=== PATIENT | male | born 2000 | race Caucasian/White ===

== ENCOUNTER 2021-04-08 16:57 | Emergency (ER) | payer SELFPAY ==
[2021-04-08 17:00] VITALS: BP 156/84; PULSE 86; RESP 18; TEMP 37; O2SAT 99
--- NOTE | 2021-04-08 19:35 | ED.GENADULT ---
HPI - General Adult General Chief complaint: Skin/Abscess/Foreign Body Stated complaint: cysts on tailbone Time Seen by Provider: 04/08/21 17:39 Source: patient Mode of arrival: ambulatory Limitations: no limitations History of Present Illness HPI narrative: Patient presents with chief complaint of abscess to the left gluteal cleft that has been present for approximately 1 week. Patient states that a few days ago he went to the ER and was told that the cyst was too firm and not ready to be drained so he was placed on clindamycin and given tramadol for pain. Patient states yesterday the abscess began draining and seem to come to ahead. Patient states that he called the claims counsel office to discuss follow-up and they told him to present to the emergency department. Patient does not have fever, chills, nausea, vomiting. Patient states this is his first time having a pilonidal abscess in the area. patient denies any other symptoms or concerns. Related Data Allergies Allergy/AdvReac Type Severity Reaction Status Date / Time No Known Allergies Allergy Verified 04/08/21 17:03 Review of Systems Review of Systems: CONSTITUTIONAL: Denies fever, chills, or sweats. EYES: Denies visual changes, redness, or discharge. ENT: Denies rhinorrhea, congestion, sore throat, or otalgia. CARDIOVASCULAR: Denies chest pain, palpitations, or edema. RESPIRATORY: Denies cough or dyspnea. GASTROINTESTINAL: Denies abdominal pain, nausea, vomiting, or diarrhea. GENITOURINARY: Denies dysuria or hematuria. SKIN: Reports abscess denies rash or itching. MUSCULOSKELETAL: Denies back pain, joint pain, or myalgia. NEUROLOGIC: Denies headache, numbness, dizziness, or weakness. PSYCHIATRIC: Denies anxiety or depression. Exam Narrative: GENERAL: Well-appearing, well-nourished, and in no acute distress. HEAD: Normocephalic, atraumatic. EYES: PERRLA and EOMI. CHEST: Clear to auscultation. No respiratory distress. No wheezes rales or rhonchi EXTREMITIES: Normal range of motion. No edema. SKIN: Abscess noted to left gluteal cleft. Very small opening noted to center. No drainage present at this time. Warm, dry, no rash. NEURO: No focal deficits. Alert and oriented x3. PSYCH: Normal mood and affect. Course Vital Signs Vital signs: Vital Signs Temperature 98.6 F 04/08/21 17:00 Pulse Rate 86 04/08/21 17:00 Respiratory Rate 18 04/08/21 17:00 Blood Pressure 156/84 H 04/08/21 17:00 Pulse Oximetry 99 04/08/21 17:00 Temperature 98.6 F 04/08/21 17:00 Pulse Rate 86 04/08/21 17:00 Respiratory Rate 18 04/08/21 17:00 Blood Pressure 156/84 H 04/08/21 17:00 Pulse Oximetry 99 04/08/21 17:00 Procedures Abscess I/D laura-rectal: Side (if applicable): left Local Anesthetic: lidocaine 1% Amount of anesthesia used (mL): 4 Technique: incised with #11 blade Irrigation: Yes Packing used?: iodoform I&D Results: Pus Medical Decision Making MDM Narrative Medical decision making narrative: Abscess drained easily. Packing was placed. There was not extensive tracking noted. Discussed wound care instructions from the need to remove packing. The need to follow-up primary care for reevaluation. Patient has already been prescribed clindamycin a few days ago and still has the prescription to finish. Patient also has tramadol at home for pain. Patient denies any other needs or concerns. Vital Signs Vital Signs: Vital Signs Temperature 98.6 F 04/08/21 17:00 Pulse Rate 86 04/08/21 17:00 Respiratory Rate 18 04/08/21 17:00 Blood Pressure 156/84 H 04/08/21 17:00 Pulse Oximetry 99 04/08/21 17:00 Temperature 98.6 F 04/08/21 17:00 Pulse Rate 86 04/08/21 17:00 Respiratory Rate 18 04/08/21 17:00 Blood Pressure 156/84 H 04/08/21 17:00 Pulse Oximetry 99 04/08/21 17:00 Discharge Plan Discharge Clinical Impression: Pilonidal abscess Patient Disposition: Home, Self-Car
== END 2021-04-08 19:28 | disposition home or self-care (01) ==
PROVIDERS: Emergency Provider Family Medicine
DX: L05.01 Pilonidal cyst with abscess (principal)
CPT/HCPCS: 10061; 10080; 46040; 87070; 87077; 87186; 87205; 99282; 99283

== ENCOUNTER 2021-07-13 11:14 | Outpatient (CLI) | payer SELFPAY ==
[2021-07-13 11:54] LABS: Influenza Control Valid (Valid); SARS-CoV-2 Ag Negative (Negative)
== END 2021-07-13 11:15 | disposition home or self-care (01) ==
LOC: CHSLAB 11:16
PROVIDERS: PCP Internal Medicine; Visit Provider Internal Medicine
DX: J06.9 Acute upper respiratory infection, unspecified (principal); Z20.822 Contact with and (suspected) exposure to COVID-19
CPT/HCPCS: 87081; 87426; 87804; 87880; C9803

== ENCOUNTER 2025-03-21 10:38 | Outpatient (CLI) | payer OTHER, SELFPAY ==
--- OUTSIDE RECORDS SUMMARY | 2025-03-21 10:45 | XMS_ITS | Clinical Summary ---
Author Organization [facility] Address [address] [place] [id number] Care Team Providers Care Distribution Operation Supervisor Name Role Phone Gilbert Frederick MD Primary Care Provider [phone] Allergies No known active allergies Medications albuterol HFA (PROVENTIL HFA,VENTOLIN HFA,PROAIR HFA) 90 mcg/actuation inhaler Inhale 2 puffs 4 (four) times a day for 5 days ON SCHEDULE FOR FIRST 5 DAYS,AFTER 5 DAYS USE IT NEEDED FOR WHEEZING/ SHORTNESS OF BREATH 1 Inhaler 0 Active FreeStyle Maritza 3 Sensor device as directed 3 Active escitalopram (LEXAPRO) 10 mg tablet Take 1 tablet (10 mg total) by mouth daily Active lamoTRIgine (LaMICtal) 100 mg tablet Take 1 tablet (100 mg total) by mouth daily Active metFORMIN XR (GLUCOPHAGE XR) 500 mg 24 hr tablet TAKE 4 TABLETS BY MOUTH EVERY DAY IN THE EVENING WITH MEAL 3 Active rifAXIMin (XIFAXAN) 200 mg tabletIndicatio ns:Irritable bowel syndrome with diarrhea Take 1 tablet (200 mg total) by mouth 3 (three) times a day 9 tablet 3 Active Ozempic 0.25 mg or 0.5 mg (2 mg/3 mL) pen injector injectionIndica tions:Weight Loss Management for Obese Patient (BMI >= 30),type 2 diabetes mellitus Inject 0.5 mg under the skin once a week 3 mL 1 4 Active empagliflozin (Jardiance) 10 mg tabletIndicatio ns:type 2 diabetes mellitus Take 1 tablet (10 mg total) by mouth daily 28 tablet 4 Active Active Problems Problem Noted Date Diagnosed Date Encounter for medical examination to establish c are 02/05/2023 Assessment & Plan (02/05/2023 12:32 PM CDT): A(n) initial well visit to establish care has been performed today. Howard Velasco is not up to date on screening tests. He is in need of Diabetic eye exam, Diabetic foot exam, Diabetic kidney disease screening, and Cholesterol screening. He is not up to date on needed preventative vaccinations; He is in need of Tdap/Td and Pneumonia (Prevnar-13 or Pneumovax-23). We discussed healthy lifestyle habits, educational material has been given. Medications reviewed, changes documented as per the medical record and discussed with patient along with risks vs benefits. Return in 3 months Irritable bowel syndrome with diarrhea 3 Type 2 diabetes mellitus with hyperlipidemia 07/2022 Class 2 severe obesity due t o excess calories with serious comorbidity and body mass index (BMI) of 35.0 to 35.9 in adult 01/31/2023 Assessment & Plan (09/18/2023 2:02 PM CDT): BMI Follow-up includes: nutrition counseling, exercise counseling, and education provided. Assessment & Plan (06/24/2023 1:30 PM [employer]): BMI Follow-up includes: nutrition counseling, exercise counseling, and education provided. Immunizations Immunization Administration Dates Next Due DTaP 07/09/2001 Hib (PRP-T) 01/16/2002 IPV 10/17/2001 Influenza, Live, Intranasal, Quadrivalent 05/01/2015 Influenza, Quadrivalent, Spl it, Preservative Free, Intramuscular 04/25/2016 Influenza, Unspecified 06/19/2023(Deferr ed: Patient Refused),01/31/2023(Deferred: Patient Refused),07/03/2022(Deferred: Patient Refused),04/03/2022(Deferred: Patient Refused),07/03/2021(Deferred: Patient Refused) MMR 09/06/2001 Meningococcal B, Recombinant (Trumenba) 01/16/2018,10/14/2016 Meningococcal MCV4, Unspecified 10/14/2016 Pneumococcal Conjugate Pcv20 09/18/2023 Tdap 01/16/2018 Varicella 04/18/2002 Medical History Medical History Date Comments Class 2 severe obesity due t o excess calories with serious comorbidity and body mass index (BMI) of 35.0 to 35.9 in adult (HCC) 01/31/2023 Type 2 diabetes mellitus with hyperlipidemia (HC C) 01/31/2023 Family History Medical History Relation Name Comments Anxiety disorder Father Depression Father Hyperlipidemia Father Suicide Completion Father Alcohol abuse Maternal Grandfather Ulcers Maternal Grandfather No Known Problems Maternal Grandmother No Known Problems Maternal Half-Brother Diabetes type I Mother No Known Problems Paternal Grandfather Brain cancer Paternal Grandmother No Known Problems Paternal Half-Brother 1 Mental illness Paternal Half-Brother 2 No Known Problems Paternal Half-Sister Relation Name Status Comments Father Maternal Grandfather Maternal Grandmother Alive Maternal Half-Brother Alive Mother Alive Paternal Grandfather Paternal Grandmother Paternal Half-Brother 1 Alive Paternal Half-Brother 2 Alive Paternal Half-Sister Alive Social History Tobacco Use Types Packs/Day Years Used Date Smoking Tobacco: Former Cigarettes 0.2 1 2 2019 Passive Smoke Exposure: Never Smokeless Tobacco: Never AUDIT-C Answer Date Recorded Q1: How often do you have a drink containing alcohol? Never 01/31/2023 Q2: How many drinks containi ng alcohol do you have on a typical day when you are drinking? Patient does not drink Q3: How often do you have si x or more drinks on one occasion? 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 on file Not on file No t on file Obstetrics History Last Filed Vital Signs Vital Sign Reading Time Taken Comments Blood Pressure 124/76 09/18/2023 2:09 PM CDT Pulse 78 09/18/2023 2:09 PM CDT Temperature 36.8 C (98.2 F) 09/18/2023 2:09 PM CDT Respiratory Rate 16 06/19/2023 11:2 9 AM [employer] Oxygen Saturation 98% 09/18/2023 2:09 PM CDT Inhaled Oxygen Concentration - - Weight 124.2 kg (273 lb 14.4 oz) 09/18/2023 2:09 PM CDT Height 188 cm (6' 2) 09/18/2023 2:09 PM CDT Body Mass Index 35.17 09/18/2023 2:09 PM CDT Plan of Treatment Health Maintenance Due Date Last Done Comments Hepatitis C Screening 2000 Dilated Eye Exam 2000 Varicella Vaccines (2 of 2 - 2-dose childhood series) 05/29/2015 04/18/2002 HPV Vaccines (1 - Male 3-dose series) 2015 Hepatitis B Screening 2018 Foot Exam 02/01/2024 01/31/2023 Regular Well Visit/Exam 18-64 02/01/2024 01/31/2023 Hemoglobin A1C 03/20/2024 09/18/2023, 06/19/2023 Albumin Creatinine Ratio, Urine 06/19/2024 Lipid Panel 06/19/2024 06/19/2023 eGFR 06/19/2024 06/19/2023, 02/03/2020 Depression Screening 09/17/2024 09/18/2023, 06/19/2023, 01/31/2023 Covid-19 Vaccine (3 - 2024- season) 2025, 01/23/2021 Influenza Vaccine (#1) 2025 04/25/2016, 2014 DTaP/Tdap/Td Vaccine (3 - Td or Tdap) 01/17/2028, 07/09/2001 Pneumococcal vaccine <65 Completed 09/18/2023 Procedures Procedure Name Priority Date/Time Associated Diagnosis Comments POCT HEMOGLOBIN A1C Routine 09/18/2023 2 :47 PM CDT Type 2 diabetes mellitus with hyperlipidemia (HCC) EGFR Routine 06/19/2023 1:22 PM [employer] Type 2 diabetes mellitus with hyperlipidemia (HCC) LIPID PANEL Routine 06/19/2023 1:22 PM [employer] Type 2 diabetes mellitus with hyperlipidemia (HCC) ALBUMIN CREATININE RATIO, URINE Routine 06/19/2023 1:22 PM [employer] Type 2 diabetes mellitus with hyperlipidemia (HCC) from Last 3 Months or Most Recently Relevant to Health Maintenance Results * (ABNORMAL) POCT hemoglobin A1c (09/18/2023 2:47 PM CDT) Hemoglobin A1C, POC 9.6 % Blood 09/18/2023 2:47 PM CDT Gilbert Frederick MD POINT OF CARE TEST ORDERABL ES Final Result * eGFR (06/19/2023 1:22 PM [employer]) eGFR 124 mL/min/1. 73 m2 [facility] Comment: Interpretive Data Reference Interval Normal >/= 90 mL/min/1.73m2 Mildly decreased* 60 - 89 mL/min/1.73m2 Mildly to moderately decreased 45 - 59 mL/min/1.73m2 Moderately to severely decreased 30 - 44 mL/min/1.73m2 Severely decreased 15 - 29 mL/min/1.73m2 Kidney Failure < 15 mL/min/1.73m2 *Relative to young adult level Estimated glomerular filtration rate is determined by the 2020 CKD-EPI equation recommended by the National Kidney Foundation (A Unifying Approach to GFR Estimation: Recommendations of the NKF-ASK Task Force on Reassessing the Inclusion of Race in Diagnosing Kidney Disease, JASN 202). The CKD-EPI equation should not be used for patients with unstable renal function and has not been validated in children and those over 70. Current interpretive data was last reviewed 2021. Blood 06/19/2023 1:2 2 PM [employer] 06/19/2023 10:43 PM [employer] Gilbert Frederick MD LAB BLOOD ORDERABLES Final Result Performing Organization Address [facility] de Phone Number [facility] [id number] [place] [address] * (ABNORMAL) Albumin Creatinine Ratio, Urine (06/19/2023 1:22 PM [employer]) Albumin Ur 126.3 mg/L [facility] Comment: Interpretive Data No reference range established. Current interpretive data was last revised 2018. Creatinine Ur 137.9 mg/dL [facility] Comment: Interpretive Data No reference range established. Current interpretive data was last revised 2018. Albumin Creatinine Ratio, Ur 92(H) 1 - 29 mg/g [facility] Urine 06/19/2023 1:22 PM [employer] 06/19/2023 10:31 PM [employer] Gilbert Frederick MD LAB URINE ORDERABLES Final Result Performing Organization Address [facility] Phone Number [facility] [id number] [place] [address] * (ABNORMAL) Lipid panel (06/19/2023 1:22 PM [employer]) Cholesterol 182 30 - 199 mg/dL [facility] Comment: Interpretive Data Ages < or = 19 years Acceptable: <170 mg/dL Borderline high: 170-199 mg/dL High: >or= 200 mg/dL Ages > or = 20 years Desirable: <200 mg/dL Borderline high: 200-239 mg/dL High: >or= 240 mg/dL Literature References: 1. Expert Panel on Integrated Guidelines for Cardiovascular Health and Risk Reduction in Children and Adolescents. Pediatrics 2011;128:S213 2. NCEP Expert Panel. Circulation 2004;110:227 Current Interpretive Data was last revised on 2018. Triglycerides 450(H) <=149 mg/dL [facility] Comment: Interpretive Data Ages < or = 9 years Acceptable: <75 mg/dL Borderline high: 75-99 mg/dL High: >or= 100 mg/dL Ages 10 to 20 years Acceptable: <90 mg/dL Borderline high: 90-129 mg/dL High: >or= 130 mg/dL Ages > or = 20 years Desirable: <150 mg/dL Borderline high: 150-199 mg/dL High: 200-499 mg/dL Very high: >or= 499 mg/dL Literature References: 1. Expert Panel on Integrated Guidelines for Cardiovascular Health and Risk Reduction in Children and Adolescents. Pediatrics 2011;128:S213 2. NCEP Expert Panel. Circulation 2004;110:227 Current Interpretive Data was last revised on 2018. HDL 36(L) >=40 mg/dL [facility] Comment: Interpretive Data Ages < or = 19 years Acceptable: >45 mg/dL Borderline low: 40-45 mg/dL Low: <40 mg/dL Ages > or = 20 years Desirable: >or= 60 mg/dL Low: <40 mg/dL Literature References: 1. Expert Panel on Integrated Guidelines for Cardiovascular Health and Risk Reduction in Children and Adolescents. Pediatrics 2011;128:S213 2. NCEP Expert Panel. Circulation 2004;110:227 Current Interpretive Data was last revised on 2018. LDL, calculated See Comment <=129 mg/dL [facility] Comment: Unable to calculate due to elevated Triglycerides. Interpretive Data Ages < or = 19 years Acceptable: <110 mg/dL Borderline high: 110-129 mg/dL High: >or= 130 mg/dL Ages > or = 20 years Optimal: <100 mg/dL Near optimal: 100-129 mg/dL Borderline high: 130-159 mg/dL High: >160 mg/dL Literature References: 1. Expert Panel on Integrated Guidelines for Cardiovascular Health and Risk Reduction in Children and Adolescents. Pediatrics 2011;128:S213 2. NCEP Expert Panel. Circulation 2004;110:227 Current Interpretive Data was last revised on 2018. Non-HDL Cholesterol 146 mg/dL [facility] Comment: Interpretive Data Ages < or = 19 years Acceptable: <120 mg/dL Borderline high: 120-144 mg/dL High: >145 mg/dL Ages > or = 20 years When triglycerides are >200 mg/dL, Non-HDL cholesterol is a secondary target of therapy with treatment goals that are 30 mg/dL greater than the LDL cholesterol target. Literature References: 1. Expert Panel on Integrated Guidelines for Cardiovascular Health and Risk Reduction in Children and Adolescents. Pediatrics 2011;128:S213 2. NCEP Expert Panel. Circulation 2004;110:227 Current Interpretive Data was last revised on 2018. Chol/HDL ratio 5 [facility] Blood 06/19/2023 1:22 PM [employer] 06/19/2023 10:31 PM [employer] us Gilbert Frederick MD LAB BLOOD ORDERABLES Final Result [facility] [id number] Department [place] [address] from Last 3 Months or Most Recently Relevant to Health Maintenance Care Teams Distribution Operation Supervisor Relationship Specialty Start Date End Date Gilbert Frederick MD [address] [address] PCP - General Family Medicine 01/31/23
--- OUTSIDE RECORDS SUMMARY | 2025-03-21 10:45 | XMS_ITS | Clinical Summary ---
Author Organization [facility] Address [address] [place] [id number] Care Team Providers Care Project Hire Name Role Phone None, Provider MD Primary Care Provider Unavaila ble Allergies No known active allergies Medications escitalopram 10 MG tablet Take 10 mg by mouth daily. Active lamoTRIgine 100 MG tablet Take 100 mg by mouth daily. Active Social History Tobacco Use Types Packs/Day Years Used Date Smoking Tobacco: Never Smokeless Tobacco: Never Alcohol Use Standard Drinks/Week Comments Yes 0 (1 standard drink = 0.6 oz pur e alcohol) Sex and Gender Information Value Date Recorded Sex Assigned at Not on file Legal Sex Male 11:39 PM CDT Gender Identity Not on file Sexual Orientation Not on file Last Filed Vital Signs Vital Sign Reading Time Taken Comments Blood Pressure 153/90 04/07/2021 12:30 AM CDT Pulse 98 04/07/2021 12:30 AM CDT Temperature 36.7 C (98 F) 04/06/2021 11:49 PM CDT Respiratory Rate 16 04/07/2021 12:30 AM CDT Oxygen Saturation 98% 04/07/2021 12:30 AM CDT Inhaled Oxygen Concentration - - Weight 133.8 kg (295 lb) 04/06/2021 11:49 PM CDT Height 188 cm (6' 2) 04/06/2021 11:49 PM CDT Body Mass Index 37.88 04/06/2021 11:49 PM CDT Plan of Treatment Health Maintenance Due Date Last Done Comments Annual Physical 2003 HPV Vaccines (1 - Male 3-dos e series) 2015 Hepatitis C 2018 DTaP, Tdap and Td Vaccines ( 1 - Tdap) 2019 Hepatitis B Vaccines (1 of 3 - 19+ 3-dose series) 2019 COVID-19 Vaccine (3 - 2024-2 6 season) 2025 02/17/2021, 01/23/2021 Meningococcal B Vaccine Aged Out No l onger eligible based on patient's age to complete this topic Meningococcal Vaccine Aged Out No suzanne traci eligible based on patient's age to complete this topic Pneumococcal Vaccine: Pediatrics (0 to 5 Years) and At-Risk Patients (6 to 49 Years) Aged Out No longer eligible b ased on patient's age to complete this topic RSV Immunizations Under 20 Months Aged Out No longer eligible b ased on patient's age to complete this topic Care Teams Project Hire Relationship Specialty Start Date End Date None, Provider, PCP - General 04/06/21
== END 2025-03-21 10:39 | disposition home or self-care (01) ==
LOC: CHSLAB 10:42
PROVIDERS: PCP Internal Medicine; Visit Provider Nurse Practitioner Family
DX: R19.8 Other specified symptoms and signs involving the digestive system and abdomen (principal)
CPT/HCPCS: 99199

== ENCOUNTER 2025-05-22 12:26 | Outpatient (CLI) | payer OTHER, SELFPAY ==
--- NOTE | 2025-05-22 12:36 | ECG_ITS ---
Test Date: 2025-05-22 12:52:38 Measurements Intervals [place] Rate: 78 P: 56 NM: 159 QRS: 76 QRSD: 95 T: 53 QT: 368 QTc: 421 Interpretive Statements SINUS RHYTHM INTERPRETATION BASED ON A DEFAULT AGE OF 40 YEARS No previous ECG available for comparison Electronically Signed On 05-22-2025 14:48:08 AIR CONDITIONING INSULATION INSTALLER by Buster España M.D.
--- OUTSIDE RECORDS SUMMARY | 2025-05-22 14:48 | XMS_ITS | Clinical Summary ---
Author Organization [facility] Address [address] [place] [id number] Care Team Providers Care Travel Manager Name Role Phone Gilbert Frederick MD Primary Care Provider +- [phone] Allergies No known active allergies Medications albuterol [...] provided. 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 Not on file Not on file No t on file Last Filed Vital Signs Vital Sign Reading Time Taken Comments Blood Pressure 124/76 09/18/2023 2:09 PM CDT Pulse 78 09/18/2023 2:09 PM CDT Temperature 36.8 C (98.2 F) 09/18/2023 2:09 PM CDT Respiratory Rate 16 06/19/2023 11:2 9 AM LUNCHROOM AIDE Oxygen Saturation 98% 09/18/2023 2:09 PM CDT [...] Screening 09/17/2024 09/18/2023, 06/19/2023, 01/31/2023 Covid-19 Vaccine ( - season) 2025, 01/23/2021 Influenza Vaccine (#1) 2025 04/25/2016, 2014 DTaP/Tdap/Td Vaccine (3 - Td or Tdap) 01/17/2028, 07/09/2001 Pneumococcal vaccine <65 Completed 09/18/2023 Procedures Procedure Name Priority Date/Time Associated Diagnosis Comments POCT HEMOGLOBIN A1C Routine 09/18/2023 2 :47 PM CDT Type 2 diabetes mellitus with hyperlipidemia (HCC) EGFR Routine 06/19/2023 1:22 PM LUNCHROOM AIDE Type 2 diabetes mellitus with hyperlipidemia (HCC) LIPID PANEL Routine 06/19/2023 1:22 PM LUNCHROOM AIDE Type 2 diabetes mellitus with hyperlipidemia (HCC) ALBUMIN CREATININE RATIO, URINE Routine 06/19/2023 1:22 PM LUNCHROOM AIDE Type 2 diabetes mellitus with hyperlipidemia (HCC) from Last 3 Months or Most Recently Relevant to Health Maintenance Results * (ABNORMAL) POCT hemoglobin A1c (09/18/2023 2:47 PM CDT) Hemoglobin A1C, POC 9.6 % Blood 09/18/2023 2:47 PM CDT Gilbert Frederick MD POINT OF CARE TEST ORDERABL ES Final Result * eGFR (06/19/2023 1:22 PM LUNCHROOM AIDE) eGFR 124 mL/min/1. 73 m2 YAJAIRA Comment: Interpretive Data Reference Interval Normal >/= [...] data was last reviewed 2021. Blood 06/19/2023 1:22 PM LUNCHROOM AIDE 06/19/2023 10:43 PM LUNCHROOM AIDE Gilbert Frederick MD LAB BLOOD ORDERABLES Final Result Performing Organization Address [facility] de Phone Number [facility] [address] [place] [address] * (ABNORMAL) Albumin Creatinine Ratio, Urine (06/19/2023 1:22 PM LUNCHROOM AIDE) Albumin Ur 126.3 mg/L YAJAIRA Comment: Interpretive Data No reference range established. Current interpretive data was last revised 2018. Creatinine Ur 137.9 mg/dL YAJAIRA Comment: Interpretive Data No reference range established. Current interpretive data was last revised 2018. Albumin Creatinine Ratio, Ur 92(H) 1 - 29 mg/g YAJAIRA Urine 06/19/2023 1:22 PM LUNCHROOM AIDE 06/19/2023 10:31 PM LUNCHROOM AIDE Gilbert Frederick MD LAB URINE ORDERABLES Final Result Performing Organization Address [facility] Phone Number [facility] [address] Department [place] [address] * (ABNORMAL) Lipid panel (06/19/2023 1:22 PM LUNCHROOM AIDE) Cholesterol 182 30 - 199 mg/dL YAJAIRA Comment: Interpretive Data Ages < or = [...] revised on 2018. Triglycerides 450(H) <=149 mg/dL YAJAIRA Comment: Interpretive Data Ages < or = [...] Pediatrics 2011;128:S213 2. NCEP Expert Panel. Circulation 2003;110:227 Current Interpretive Data was last revised on [...] 5 YAJAIRA MONT[address] Blood 06/19/2023 1:22 PM LUNCHROOM AIDE 06/19/2023 10:31 PM LUNCHROOM AIDE Gilbert Frederick MD LAB BLOOD ORDERABLES Final Result YAJAIRA [address] Department [place] [address] from Last 3 Months or Most Recently Relevant to Health Maintenance Care Teams Travel Manager Relationship Specialty Start Date End Date Gilbert Frederick MD [address] [address] PCP - General Family Medicine 01/31/23
== END 2025-05-22 12:27 | disposition home or self-care (01) ==
LOC: CHSCARD 12:33
PROVIDERS: PCP Internal Medicine; Visit Provider Anesthesiology
DX: E11.9 Type 2 diabetes mellitus without complications (principal)
CPT/HCPCS: 93005

== ENCOUNTER 2025-05-26 00:16 | Day surgery (SDC) | payer OTHER, SELFPAY ==
[2025-05-19 14:08] VITALS: BMI 32.8
--- NOTE | 2025-05-19 14:16 | PC.NURSE ---
[facility] has started construction of its new state of the art ER which will open Spring 2026. With this, we anticipate parking may be a challenge for some our surgical patients and families. Parking spaces are limited but are available for all Surgical, obstetrics, and ER patients sharing this lot. If you arrive and find you are having a hard time finding a parking space, please note that we understand the challenges, please drive around the hospital and park near Hospital Entrance 1. When you enter this entrance, you can ask a volunteer to direct or take you back to the surgical waiting area to check in. We appreciate everyone?s understanding of these expected challenges while we build for your future. Report to the Outpatient Waiting Room, entrance under the green pavilion located off [address], at time _0800_ on date _[id number]_. Planned Procedure Time: _1000_.? Time changes happen often and if your time is changed the preop area will call you the afternoon before. - You and your visitor will be asked to self-screen and do not enter if you have any COVID symptoms. Please call surgeon if you need to reschedule. - A mask is optional within the hospital at this time. Patients may have clear liquids (water, carbonated beverages, clear teas, apple juice) until 3 hours prior to surgery with a maximum of 20 ounces. - No food from midnight until time of surgery and no smoking, or chewing tobacco (or any form of nicotine). No chewing gum, candy or mints. Take only the following medications with a SIP of water on the morning of surgery: ___None DO NOT STOP ANY OF YOUR OTHER PRESCRIPTION MEDICATIONS PRIOR TO SURGERY EXCEPT THE FOLLOWING Hold all vitamins and supplements for 3 days per anesthesiologist. Medications to discontinue per physician Date to take last dose Please no make-up, nail tristanian, hairspray, perfume, deodorant, or body powder the day of surgery.? No jewelry (including any body piercings) or valuables the day of surgery, leave them at home.? Please take a shower or bath the night before, or the morning of, surgery with an antibacterial soap.? Wear comfortable, loose fitting clothing.? - Jewelry must be removed prior to entering the operating room.? Rings and piercings that are not removed may be cut off. - The hospital will not accept responsibility for valuables.? - Please leave all valuables, including medications, at home the day of surgery. If you are going home after surgery, a licensed automation driver must drive you home.? - NO public transportation without another adult if you receive anesthesia. - We recommend that an adult stay with you for 24 hours following discharge. - We also recommend that you do not drive, make important decision, drink alcoholic beverages, or take any drugs that were not prescribed by your health care provider for at least 24 hours after your discharge time. Follow any additional instructions given to you from your surgeon. Telephone instructions given to _Wyatt__and asked if any additional questions and then verbalized understanding. Patient advised to call surgeon office or pre surgery nurse liaison [phone] if any additional questions.
[2025-05-26] VITALS (9 sets, daily range): BP systolic 93–155; BP diastolic 41–98; PULSE 83–110; RESP 14–22; TEMP 36.2–36.8; O2SAT 94–100; BMI 32.4
--- OUTSIDE RECORDS SUMMARY | 2025-05-26 00:19 | XMS_ITS | Clinical Summary ---
Author Organization [facility] Address [address] [place] [id number] Care Team Providers Care Commercial Decorator Name Role Phone Gilbert Frederick MD Primary Care Provider +- [phone] Allergies No known active allergies Medications albuterol [...] provided. 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 on file Not on file No t on file Last Filed Vital Signs Vital Sign Reading Time Taken Comments Blood Pressure 124/76 09/18/2023 2:09 PM CDT Pulse 78 09/18/2023 2:09 PM CDT Temperature 36.8 C (98.2 F) 09/18/2023 2:09 PM CDT Respiratory Rate 16 06/19/2023 11:2 9 AM ANESTHESIOLOGY RESIDENT Oxygen Saturation 98% 09/18/2023 2:09 PM CDT [...] hyperlipidemia (HCC) EGFR Routine 06/19/2023 1:22 PM ANESTHESIOLOGY RESIDENT Type 2 diabetes mellitus with hyperlipidemia (HCC) LIPID PANEL Routine 06/19/2023 1:22 PM ANESTHESIOLOGY RESIDENT Type 2 diabetes mellitus with hyperlipidemia (HCC) ALBUMIN CREATININE RATIO, URINE Routine 06/19/2023 1:22 PM ANESTHESIOLOGY RESIDENT Type 2 diabetes mellitus with hyperlipidemia (HCC) from Last 3 Months or Most Recently Relevant to Health Maintenance Results * (ABNORMAL) POCT hemoglobin A1c (09/18/2023 2:47 PM CDT) Hemoglobin A1C, POC 9.6 % Blood 09/18/2023 2:47 PM CDT Gilbert Frederick MD POINT OF CARE TEST ORDERABL ES Final Result * eGFR (06/19/2023 1:22 PM ANESTHESIOLOGY RESIDENT) eGFR 124 mL/min/1. 73 m2 YAJAIRA Comment: [...] last reviewed 2021. Blood 06/19/2023 1:22 PM ANESTHESIOLOGY RESIDENT 06/19/2023 10:43 PM ANESTHESIOLOGY RESIDENT Gilbert Frederick MD LAB BLOOD ORDERABLES Final Result Performing Organization Address [facility] de Phone Number [facility] [address] [place] [address] * (ABNORMAL) Albumin Creatinine Ratio, Urine (06/19/2023 1:22 PM ANESTHESIOLOGY RESIDENT) Albumin Ur 126.3 mg/L YAJAIRA Comment: Interpretive Data No reference range established. Current interpretive data was last revised 2018. Creatinine Ur 137.9 mg/dL YAJAIRA Comment: Interpretive Data No reference range established. Current interpretive data was last revised 2018. Albumin Creatinine Ratio, Ur 92(H) 1 - 29 mg/g YAJAIRA Urine 06/19/2023 1:22 PM ANESTHESIOLOGY RESIDENT 06/19/2023 10:31 PM ANESTHESIOLOGY RESIDENT Gilbert Frederick MD LAB URINE ORDERABLES Final Result Performing Organization Address [facility] Phone Number [facility] [address] [place] [address] * (ABNORMAL) Lipid panel (06/19/2023 1:22 PM ANESTHESIOLOGY RESIDENT) Cholesterol 182 30 - 199 mg/dL YAJAIRA [...] 5 YAJAIRA MONTELONGO Blood 06/19/2023 1:22 PM ANESTHESIOLOGY RESIDENT 06/19/2023 10:31 PM ANESTHESIOLOGY RESIDENT Gilbert Frederick MD LAB BLOOD ORDERABLES Final Result YAJAIRA [address] [place] [address] from Last 3 Months or Most Recently Relevant to Health Maintenance Care Teams Commercial Decorator Relationship Specialty Start Date End Date Gilbert Frederick MD [address] [address] PCP - General Family Medicine 01/31/23
--- OUTSIDE RECORDS SUMMARY | 2025-05-26 00:19 | XMS_ITS | Clinical Summary ---
Author Organization [facility] Address [address] [place] [id number] Care Team Providers Care Radioactive Waste Disposal Dispatcher Name Role Phone Henrietta Kate CASE MAKER Primary Care Provider [phone] Allergies No known active allergies Medications escitalopram 10 MG tablet Take 10 mg by mouth daily. Active lamoTRIgine 100 MG tablet Take 100 mg by mouth daily. Active Encounters Date Type Department Care Team Description 03/27/2025 8:53 AM CDT - 03/27/2025 11:59 PM CDT Hospital Encounter [facility] [address] [place] [address] Henrietta Kate, KAR Discharge Disposition: Home or Self Care (Routine Discharge) 03/27/2025 Travel from Last 3 Months Social History Tobacco Use Types Packs/Day Years Used Date Smoking Tobacco: Never Smokeless Tobacco: Never Alcohol Use Standard Drinks/Week Comments Yes 0 (1 standard drink = 0.6 oz pur e alcohol) Sex and Gender Information Value Date Recorded Sex Assigned at Male 03/27/2025 8:49 AM CDT Legal Sex Male 11:39 PM CDT Gender [...] 3-dos e series) 2015 Hepatitis C 2018 Hepatitis B Vaccines (1 of 3 - 19+ 3-dose series) 2019 COVID-19 Vaccine (3 - 2024-2 6 season) 2025 02/17/2021, 01/23/2021 Influenza Adult (#1) 2025 04/25/2016, 05/01/2015 DTaP, Tdap and Td Vaccines ( 3 - Td or Tdap) 01/17/2028 01/16/2018, 07/09/2001 Meningococcal Vaccine Aged Out 10/14/2016 No suzanne traci eligible based on patient's age to complete this topic Meningococcal B Vaccine Completed 01/17/20 18, 10/14/2016 Pneumococcal Vaccine: Pediatrics (0 to 5 Years) and At-Risk Patients (6 to 49 Years) Aged Out 09/18/2023 No longer eligible b ased on patient's age to complete this topic Hepatitis A Vaccines Aged Out No long er eligible based on patient's age to complete this topic RSV Immunizations Under 20 Months Aged Out No longer eligible b ased on patient's age to complete this topic Procedures Procedure Name Priority Date/Time Associated Diagnosis Comments US ABD LIMITED Routine 03/27/2025 9:10 AM CDT Umbilicus discharge from Last 3 Months Results * US ABD LIMITED (03/27/2025 9:10 AM CDT) Anatomical Region Laterality Modality Abdomen Ultrasound 03/27/2025 9:21 AM CDT Impressions 03/27/2025 1:42 PM CDT IMPRESSION: Within the region of concern there appears to be a 2.0 cm solid echogenic lesion with underlying apparent tiny fascial defect on cine clip imaging and continuity of the aforementioned lesion with the underlying visceral fat. This is favored to represent a small umbilical hernia with herniation of visceral fat only. No peristalsing bowel is seen within the herniated lesion. No blood flow on color Doppler imaging. No discrete cystic components. Dictated By: Ericka Alcantara MD on 03/27/2025 9:21 AM The attending radiologist has reviewed the image(s) and agrees with the content of this report. Ordered By: HENRIETTA KATE Interpreted By: Ericka Alcantara MD, 03/27/2025 9:21 AM Narrative 03/27/2025 1:42 PM [address]T [address] [place] [address] EXAMINATION: US ABD LIMITED DATE: 03/27/2025 8:57 AM HISTORY: 24 years Male. Umbilicus discharge COMPARISON: None available. TECHNIQUE: An ultrasound examination of the umbilical region was performed to assess grayscale appearance and color Doppler flow characteristics. FINDINGS: There is a 2.0 x 1.3 x 1.5 cm mixed echogenic ovoid structure seen in the umbilical region. This appears to have solid composition. This does not significantly change with Valsalva maneuver. On one of the cine clips (image 35 of 91) there appears to be a defect in the underlying fascia and the aforementioned echogenic mass appears to be continuous with the visceral fat. No peristalsing bowel is noted within this area. No blood flow on color Doppler imaging (image 10 out of 10). Procedure Note Eduin López MD - 03/27/[address] [place] [address] EXAMINATION: US ABD LIMITED DATE: 03/27/2025 8:57 AM HISTORY: 24 years Male. Umbilicus discharge COMPARISON: None available. TECHNIQUE: An ultrasound examination of the umbilical region wasperformed to assess grayscale appearance and color Doppler flowcharacteristics. FINDINGS: There is a 2.0 x 1.3 x 1.5 cm mixed echogenic ovoid structure seen in theumbilical region. This appears to have solid composition. This does notsignificantly change with Valsalva maneuver. On one of the cine clips(image 35 of 91) there appears to be a defect in the underlying fascia andthe aforementioned echogenic mass appears to be continuous with thevisceral fat. No peristalsing bowel is noted within this area. No bloodflow on color Doppler imaging (image 10 out of 10). IMPRESSION: Within the region of concern there appears to be a 2.0 cm solid echogeniclesion with underlying apparent tiny fascial defect on cine clip imagingand continuity of the aforementioned lesion with the underlying visceralfat. This is favored to represent a small umbilical hernia with herniationof visceral fat only. No peristalsing bowel is seen within the herniatedlesion. No blood flow on color Doppler imaging. No discrete cysticcomponents. Dictated By: Ericka Alcantara MD on 03/27/2025 9:21 AM The attending radiologist has reviewed the image(s) and agrees with thecontent of this report. Ordered By: HENRIETTA KATE Interpreted By: Ericka Alcantara MD, 03/27/2025 9:21 AM us Henrietta Kate NP ULTRASOUND Final Result from Last 3 Months Insurance [employer] Care Teams Radioactive Waste Disposal Dispatcher Relationship Specialty Start Date End Date Henrietta Kate NP [address] [place] [address] PCP - General NURSE PRACTITIONER 03/21/25
[2025-05-26] MEDS: LACTATED RINGERS 1,000 ML 30 ML IV CONT ×2 (08:15→11:13)
[2025-05-26] MEDS: ACETAMINOPHEN 500 MG TABLET 1000 MG PO (08:24)
[2025-05-26] MEDS: KETOROLAC 15 MG/ML VIAL (*BKC) IV PUSH ×2 (08:24→10:55)
--- NOTE | 2025-05-26 09:16 | WPDANESEPPF ---
Anes - Initial Pre Proc Eval Procedure: Operation Date: 05/26/25 10:00 Proposed Procedures p Open Umbilical Hernia Repair without Mesh, Umbilical Skin Lesion Excision - Raymond Bryant MD Date/Time: 05/26/25 09:16 Surgeon: Raymond Bryant MD Pre Op Diagnosis: Umb Hernia reducible 1cm Patient Data Age: 24 Gender: M Height: 1.88 m Weight: 114.6 kg Last Vital Signs Temp 98.3 F 05/26/25 07:50 Pulse 83 05/26/25 07:50 Resp 16 05/26/25 07:50 BP 137/85 05/26/25 07:50 Pulse Ox 98 05/26/25 07:50 Allergies Allergy/AdvReac Type Severity Reaction Status Date / Time No Known Allergies Allergy Verified 05/26/25 08:34 Home Medications ?Medication ?Instructions ?Recorded ?Confirmed ?Type glipizide 10 mg tablet 20 mg PO DAILY 04/03/25 05/19/25 History metformin 1,000 mg tablet 2,000 mg PO DAILY 04/03/25 05/19/25 History semaglutide 2 mg/dose (8 mg/3 mL) 2 mg subcut WEEKLY 04/03/25 05/26/25 History subcutaneous pen injector (Ozempic) escitalopram oxalate 10 mg tablet 10 mg PO DAILY 05/19/25 05/19/25 History lamotrigine 100 mg tablet 100 mg PO DAILY 05/19/25 05/19/25 History Laboratory Tests 05/26/25 08:15 POC Capillary Glucose 152 H mg/dl (65-105) Patient hx anesthesia problems: none Family hx anesthesia problems: none Results Review: All pre-operative results and documents have been reviewed as part of the pre-operative evaluation. [facility] Past Medical History Medical History Type 2 diabetes mellitus Family History Family History Mother Diabetes mellitus Alcoholism Father Alcoholism Depression Hypertension Social History Social History Smoking status: Current every day smoker Tobacco type: cigarettes and e-cigarettes/vaping Additional smoking assessment comments: vaping now. cigarettes at age 19 only. Alcohol intake: current Substance use: former Substance use type: marijuana Living arrangements: with family Spiritual care concerns: No Anes - Eval Final PreProcedure Day of Procedure 05/26/25 09:16 Patient weight: obese Lungs: normal air movement Airway: Mallampati scale class II Neurological: alert and oriented Last oral intake: >/= 8 hours ASA classification: III Emergent: no Anesthetic plan: proceed Anesthesia type and monitoring: general ETT and standard monitoring Results Review: All pre-operative results and documents have been reviewed as part of the pre-operative evaluation. DM on GLP1 off 3 days, fsbs 152., vapes daily, anxiety/bipolar disorder. Informed Consent: The patient's anesthetic plan and its attendant risks and benefits were discussed with the patient/family/POA. Questions were solicited and answers provided to the satisfaction of the patient/family/POA.
--- NOTE | 2025-05-26 09:26 | PM.IMHP ---
H&P: HPI History of Present Illness Date/Time: 05/26/25 09:26 Chief Complaint: Umbilical hernia Narrative: Mr. Velasco presents to the office today at the request of Henrietta Cabrera APRN for evaluation. About a month ago, he noticed a odorous, purulent appearing discharge from his umbilicus. He was evaluated by his PCP who placed him on an antibiotics and the drainage stopped. Noticed a palpable mass inside his umbilicus. Was also sent for a ultrasound which showed a 2.0cm solid echogenic lesion with underlying apparent tiny fascial defect. This is favored to represent a small umbilical henia with herniation of viscaeral fat only. Review of Systems Review of Systems: The remainder of the review of systems to include constitutional, HEENT, cardiovascular, respiratory, GI, , integumentary, musculoskeletal, endocrine, immunologic, hematologic, psychiatric, and neurologic are all negative except for which is mentioned above in the HPI. [facility] Past Medical History Medical History Type 2 diabetes mellitus Family History Family History Mother Diabetes mellitus Alcoholism Father Alcoholism Depression Hypertension Social History Social History Smoking status: Current every day smoker Tobacco type: cigarettes and e-cigarettes/vaping Additional smoking assessment comments: vaping now. cigarettes at age 19 only. Alcohol intake: current Substance use: former Substance use type: marijuana Living arrangements: with family Spiritual care concerns: No Meds Home Medications and Allergies Home Medications ?Medication ?Instructions ?Recorded ?Confirmed ?Type glipizide 10 mg tablet 20 mg PO DAILY 04/03/25 05/19/25 History metformin 1,000 mg tablet 2,000 mg PO DAILY 04/03/25 05/19/25 History semaglutide 2 mg/dose (8 mg/3 mL) 2 mg subcut WEEKLY 04/03/25 05/26/25 History subcutaneous pen injector (Ozempic) escitalopram oxalate 10 mg tablet 10 mg PO DAILY 05/19/25 05/19/25 History lamotrigine 100 mg tablet 100 mg PO DAILY 05/19/25 05/19/25 History Allergies Allergy/AdvReac Type Severity Reaction Status Date / Time No Known Allergies Allergy Verified 05/26/25 08:34 Vital Signs Vital Signs - 24 hr 05/26/25 07:50 Temperature 36.8 C Pulse Rate 83 Respiratory Rate 16 Blood Pressure 137/85 Pulse Oximetry 98 Exam Const: General: comfortable and no acute distress HENMT: Ears: TM's normal bilaterally Face/Nose/Sinus: Normal nares present Mouth: Yes moist mucous membranes Eyes: General: appearance normal, both eyes and all related structures Sclera: sclerae normal Pupils: Equal, round and reactive pupils present EOM: EOMs intact bilaterally Neck: Neck: supple and no JVD Resp: Effort & Inspection: normal respiratory effort Auscultation: clear to auscultation bilaterally Cardio: Rate: regular rate Rhythm: regular rhythm GI: Other: Soft, nondistended. Small reducible umbilical hernia defect measuring about 1cm. There is a small 3mm skin lesion at the base of umbilicus which is nonulcerated. Skin: General skin exam: normal color and no rashes or lesions noted Neuro: General: gait normal Speech: normal speech Motor exam (neuro): 5/5 motor strength present throughout Sensory Exam: normal sensation Extrem: General: normal to inspection Psych: Mental Status: mental status grossly normal Affect: normal affect Assessment and Plan Assessment and plan (1) Umbilical hernia without obstruction or gangrene: Code(s): K42.9 - Umbilical hernia without obstruction or gangrene Status: Acute Assessment and Plan: Prior to the patients visit I reviewed the office note of Henrietta Cabrera APRN as well as the report from his recent ultrasound. Recommend proceeding with open umbilical hernia repair without mesh to be performed in the OR under general anesthesia as an outpatient. Will go ahead and excised the small umbilical skin lesion at the same time. The surgery was explained in detail including description, risks, benefits, post-operative restrictions, expected amount of time off work after surgery, anticipated recovery, and expected outcome. Questions answered and he agrees to proceed as discussed. He has a trip to [place] on 05/12/2025 and would like to wait until after he returns to proceed. If he umbilical skin lesionis still present, then will remove as well. (2) Lesion of umbilical stump: Code(s): P02.60 - affected by unspecified conditions of umbilical cord Status: Acute Assessment and Plan: Will excise if still present at time of umbilical hernia repair.
--- NOTE | 2025-05-26 09:32 | WPDHPUPDATE1 ---
History and Physical Update Update Date/Time: 05/26/25 09:32 History and Physical has been reviewed, including an updated exam of the patient. There are NO changes in the patient's condition. Risks, benefits, and alternatives have been discussed and questions answered. Patient agrees to proceed with procedure.
[2025-05-26] MEDS: LIDO 1%/EPINEPHRINE 1:100,000 50 ML VIAL 30 ML INFILTRATE (09:46)
[2025-05-26] MEDS: ceFAZolin 2 GM in SODIUM CHLORIDE 0.9% IV 50 ML 100 ML IVPB (09:46)
--- NOTE | 2025-05-26 10:35 | S_PTH ---
PATIENT: Howard Velasco LOC: [facility] U#:[id number] AGE/SX: 24/M ROOM: RE05/26/[address]: Raymond Bryant MD : 2000 BED: DIS: 05/26/2025 SPEC #: [id number] RECD: 05/26/25 11:42 STATUS: SLY REQ #: [id number] CAIN: 05/26/25 10:[address]: Raymond Bryant DEPT: [facility] Surgical RECD BY: Rena Bailey ENTERED: 05/26/25 11:43 SP TYPE: Surgical OTHR DR: Palak Bauer MD Tissues: A - Skin Procedures: Hematoxylin and Eosin Stain Gross and Microscopic Level 4
--- NOTE | 2025-05-26 11:10 | W.PM.PROC2 ---
Procedure Note - Detailed Date of Procedure 05/26/25 Pre-op Diagnosis Umb Hernia reducible 1cm, umbilical skin lesion Post-op Diagnosis Same Procedure Performed Open umbilical hernia repair without mesh Excision of umbilical skin lesion with 1cm intermediate layered wound closure Surgeon Raymond Bryant MD [employer] [facility] Anesthesia General Indications Patient is a 24-year-old white male who presented with drainage in the periumbilical region and small umbilical hernia. He appeared to have a irritated skin lesion in the umbilicus where the base. He also had a small ventral hernia defect at the umbilicus measured about 1cm in diameter. He presents now for primary repair of umbilical hernia without mesh and excision of the umbilical skin defect. Findings The patient's umbilical hernia defect was approximately 1.5cm. The umbilical skin lesion measured 5x0.3cm. There was a 1cm intermediate layered wound closure of the umbilical skin defect. Description of Procedure After informed consent was obtained patient brought to the operating room placed supine position and general endotracheal anesthesia was administered. The abdomen was then prepped and draped usual sterile fashion. Time-out was then performed correctly identifying the patient as well as procedure to be performed. He was given perioperative IV antibiotics. I 1st started by making a small curved incision along the upper edge of the umbilicus in a curved fashion. Dissection was carried down sharply through the dermis skin with a scalpel electrocautery was dissected down to the small hernia defect and umbilical stalk. Blunt finger and clamp dissection I circled the umbilical stalk and then disconnected the umbilical skin from the stalk utilizing electrocautery. I then everted the umbilical skin and there was a 0.5x0.3cm well-circumscribed skin lesion area without bleeding or ulceration. The area was then cleaned again with additional Betadine. I then proceeded to evaluate the umbilical defect. The small amount of preperitoneal fat protruding through the umbilical defect. The defect measured approximately 1.5cm in diameter. I then proceeded to close the umbilical defect primarily with interrupted 0 Ethibond sutures taking 1cm bites on either side of the fascial edge. The defect closed nicely without any tension. I then irrigated out the incision sterile saline solution hemostasis was good. I then proceeded to excise the umbilical skin lesion. With the umbilical skin everted a vertical 1cm elliptical incision was made to incorporate the whole skin lesion. It was carried sharply down through the dermis and skin and the ellipse of skin encompassing the whole skin lesion was passed off table sent to pathology for examination. I then closed the incision by placement of a running 5 0 Monocryl suture in the deep dermis of the umbilical skin incision. This is then followed by a running 4-0 Monocryl suture to approximate the skin edges. The length of the intermediate layered wound closure for the umbilical skin lesion was 1cm. I then turned my attention back towards closing the incision I made to repair the umbilical hernia. I injected 1% lidocaine mixed with 0.5% Marcaine with some epinephrine in the anterior fascia for postop pain management. I then recreated the inverted umbilicus by tacking the umbilical stalk down to the deeper fascial structures utilizing 3-0 Vicryl suture. The deep subcutaneous tissue layers were then closed utilizing interrupted 2-0 Vicryl sutures. This is then followed by layer of interrupted 3-0 Vicryl sutures the deep dermal layer. The skin edges were then approximated utilizing a running subcuticular 4-0 Monocryl suture. The incision was then cleaned and then skin glue was applied. The patient tolerated the procedure well no complications. All sponges, needles, and instrument counts were correct at the end procedure. EBL was _20__cc. The patient was awakened and taken to recovery in stable and satisfactory condition. Implants None Estimated Blood Loss 20 Drains No Packing No Pathology Yes (Umbilical skin lesion sent to pathology) Complications No immediate complications Condition Stable Disposition PACU [facility] Billing Surgery - Charge Forward: Surgery Billing
[2025-05-26] MEDS: oxyCODONE HCL (*CRX) 5 MG TAB IR PO (12:37)
== END 2025-05-26 13:38 | disposition home or self-care (01) ==
PROVIDERS: PCP Internal Medicine; Visit Provider Surgery
PROC: (CPT 49591; principal; 2025-05-26 10:00)
DX: K42.9 Umbilical hernia without obstruction or gangrene (principal); E11.9 Type 2 diabetes mellitus without complications; F41.9 Anxiety disorder, unspecified; F31.9 Bipolar disorder, unspecified; F17.290 Nicotine dependence, other tobacco product, uncomplicated; F12.90 Cannabis use, unspecified, uncomplicated; Z79.84 Long term (current) use of oral hypoglycemic drugs; Z79.85 Long-term (current) use of injectable non-insulin antidiabetic drugs
CPT/HCPCS: 49591; 11402; 12031; 82948; 88305; J0690; A9270; J1100; J1885; J2003; J2004; J2250; J2405; J2704; J3010; J7120